=== PATIENT | female | born 1945 | race Caucasian/White ===

== ENCOUNTER 2017-01-31 16:05 | Inpatient (IN) | payer OTHER, MEDICARE ==
[~2017-01-31] VITALS: Ht 160 cm; Wt 91.3 kg
[2017-02-22] MEDS ORDERED: POTA20TA5 PO (10:44)
[2017-02-22] MEDS ORDERED: CO Q100C9 PO (10:44)
[2017-02-22] MEDS ORDERED: ATOR40TA16 PO (10:44)
[2017-02-23] MEDS ORDERED: BUPIVACAINE HCL PF 0.5% 30 ML VIAL NERV BLOCK ONE (07:46)
[2017-02-23] MEDS ORDERED: SODIUM CHLORID 0.9% 500 ML IV PRN (09:00)
[2017-02-23] MEDS ORDERED: INSULIN HUMAN REGULAR 1,000 UNITS/10 ML VIAL SQ PRN (09:00)
[2017-02-23] MEDS ORDERED: CHLORHEXIDINE GLUCONATE 2 % 1 PACK (2 CLOTHS) TOPICAL PRN (09:00)
[2017-02-23] MEDS ORDERED: EXPAREL PERI-ARTICULAR INJECTION (TOTAL VOL. 60 ML) P-ARTICULR SCH ×2 (09:00)
[2017-02-23] MEDS ORDERED: DEXAMETHASONE SOD PHOS 20 MG/5 ML VIAL IV SCH (09:00)
[2017-02-23] MEDS ORDERED: VANCOMYCIN 1000 MG/NS 250 ML (for <70 kg) IV SCH ×2 (09:00)
[2017-02-23] MEDS ORDERED: LACTATED RINGER'S 1000 ML IV PRN (09:00)
[2017-02-23] MEDS ORDERED: POVIDONE IODINE 5% (ANTISEPSIS KIT) 4 APPLICATIONS EACH NARE PRN (09:00)
[2017-02-23] MEDS ORDERED: ceFAZolin 2 GM PREMIX 50 ML IV SCH (09:00)
[2017-02-23] MEDS ORDERED: METOPROLOL TARTRATE 25 MG TAB PO PRN (09:00)
[2017-02-23 09:01] VITALS: BP 150/92; PULSE 69; RESP 18; TEMP 97.6; O2SAT 96
[2017-02-23] MEDS ORDERED: GENTAMICIN SULFATE 80 MG/2 ML VIAL ONE (09:28)
[2017-02-23] MEDS ORDERED: fentaNYL CITRATE 250 MCG/5 ML AMP ONE (11:41)
[2017-02-23] MEDS ORDERED: SODIUM CHLOR 0.9% 250 ML INJ 250 ML IV ONE (12:00)
[2017-02-23] MEDS ORDERED: PROPOFOL 200 MG/20 ML AMP IV ONE (12:00)
[2017-02-23] MEDS ORDERED: PHENYLEPHRINE HCL 10 MG/ML VIAL IV ONE (12:00)
[2017-02-23] MEDS ORDERED: PHENYLEPH/NS 1000 MCG/10 ML SYR IV ONE (12:00)
[2017-02-23] MEDS ORDERED: ONDANSETRON HCL 4 MG/2 ML VIAL IV PUSH ONE (12:00)
[2017-02-23] MEDS ORDERED: LACTATED RINGER'S 1000 ML INJ 1,000 ML IV ONE (12:00)
[2017-02-23] MEDS ORDERED: MINERAL OIL 10 ML VIAL ONE (13:39)
[2017-02-23] MEDS ORDERED: SODIUM CHLORIDE 0.9% FLUSH 5 ML FLUSH IVF PRN (14:45)
[2017-02-23] MEDS ORDERED: diphenhydrAMINE HCL 25 MG CAP PO PRN (14:45)
[2017-02-23] MEDS ORDERED: Post-op Orders (for Pharmacy) MISC XX ONE (14:45)
[2017-02-23] MEDS ORDERED: MISCELLANEOUS NURSING INFORMATION XX PRN (14:45)
[2017-02-23] MEDS ORDERED: MORPHINE SULFATE 4 MG/ML INJ IV PUSH PRN (14:45)
[2017-02-23] MEDS ORDERED: ONDANSETRON HCL 4 MG/2 ML VIAL IVP PRN (14:45)
[2017-02-23] MEDS ORDERED: MISCELLANEOUS PHARMACY INFORMATION XX ONE (14:45)
[2017-02-23] MEDS ORDERED: NALOXONE HCL 0.4 MG/ML AMP IV PRN (14:45)
[2017-02-23] MEDS ORDERED: MAGNESIUM HYDROXIDE SUSP 30 ML CUP PO PRN (14:45)
[2017-02-23] MEDS ORDERED: ACETAMINOPHEN/HYDROcodone 325 MG/5 MG TAB PO PRN (14:45)
[2017-02-23] MEDS ORDERED: NORC5TAB PO (14:50)
[2017-02-23] MEDS ORDERED: DO NOT ADM ANY ANTICOAGULANT DRUGS PRN (15:11)
[2017-02-23 15:56] LABS: AUTOMATED NEUTROPHIL # 6.6 TH/MM3 (1.8-7.7); BASOPHIL % 0.2 % (0.0-2.0); EOSINOPHIL % 0.1 % (0.0-4.0); HEMATOCRIT 36.2 % (35.0-46.0); HEMO FLAGS DIFF FINAL; LYMPH % 5.4 % (9.0-44.0); LYMPHOCYTE # 0.4 TH/MM3 (1.0-4.8); MEAN CELL VOLUME 92.2 FL (80.0-100.0); MEAN CORPUSCULAR HEMOGLOBIN 31.8 PG (27.0-34.0); MEAN CORPUSCULAR HGB CONC 34.5 % (32.0-36.0); NEUT % 93.3 % (16.0-70.0); PLATELET COUNT 225 TH/MM3 (150-450); RED BLOOD COUNT 3.93 MIL/MM3 (4.00-5.30); RED CELL DISTRIBUTION WIDTH 13.6 % (11.6-17.2)
--- NOTE | 2017-02-23 15:58 | HHI.FF ---
Face to Face Verification Diagnosis: (1) Status post total shoulder arthroplasty (2) Osteoarthritis, shoulder Occupational Therapy Left UE Weight Bearing: Non WB Left UE Range of Motion: Pendular Nursing Nursing: Dressing changes Dressing Changes: Daily dressing change I have seen patient Lakisha Prescott on 02/23/17. My clinical findings support the need for the requested home health care services because: Limited ability to care for self I certify that my clinical findings support that this patient is homebound because: Post-op weakness Henry Corey February 23, 2017 15:58
--- NOTE | 2017-02-23 16:34 | RADRPT ---
EXAM DATE/TIME: 02/23/2017 16:11 [facility] COMPARISON: No previous studies available for comparison. INDICATIONS : Total left shoulder replacement. MEDICAL HISTORY : None. SURGICAL HISTORY : None. ENCOUNTER: Initial ACUITY: 1 day PAIN SCORE: 4/10 LOCATION: Left shoulder. FINDINGS: Left shoulder arthroplasty is present. Hardware appears intact. Alignment is anatomic. The adjacent c lavicle and ribs are unremarkable. CONCLUSION: Satisfactory appearance of left TSA Bang Faye MD on February 23, 2017 at 16:31 Board Certified Radiologist. This report was verified electronically.
[2017-02-23] MEDS: DEXT 5%-NACL 0.45% 1000 ML INJ 1,000 ML IV SCH (17:00)
[2017-02-23 20:00] VITALS: BP 142/94; PULSE 85; RESP 17; TEMP 99; O2SAT 95
[2017-02-23] MEDS ORDERED: ATORVASTATIN 40 MG TAB PO SCH (21:00)
[2017-02-23] MEDS: SODIUM CHLORIDE 0.9% FLUSH 5 ML FLUSH IVF SCH (21:00)
[2017-02-23] MEDS: DOCUSATE SODIUM 50 MG/SENNA 8.6 MG TAB PO SCH (23:02)
[2017-02-23] MEDS: ACETAMINOPHEN/HYDROcodone 325 MG/5 MG TAB PO PRN (23:02)
[2017-02-24] VITALS: BP 113/65; PULSE 77; RESP 20; TEMP 97.3; O2SAT 95
[2017-02-24 04:00] VITALS: BP 136/80; PULSE 76; RESP 20; TEMP 97.3; O2SAT 94
--- NOTE | 2017-02-24 06:38 | MP ---
cc: ALEX MARTIN DATE OF SURGERY February 23, 2017 PREOPERATIVE DIAGNOSIS Left shoulder severe osteoarthritis. POSTOPERATIVE DIAGNOSIS Left shoulder severe osteoarthritis. SURGEON Dr. Alex Martin STEWARD/STEWARDESS SECOND HENNY Jackson The surgical procedure was assisted by my Advanced Registered Nurse Practitioner. My APPLE PACKING HEADER's presence was necessary throughout this case for the manipulation and positioning of the surgical extremity. My APPLE PACKING HEADER was assisting me throughout the duration of this procedure. The skill set of an Advanced Registered Nurse Practitioner was medically necessary to complete this procedure. During the surgical case, the computer aided design technician was working at the back table and the Advanced Registered Nurse Practitioner was directly assisting me. PROCEDURE Left total shoulder arthroplasty. IMPLANTS Arthrex Univers glenoid small, Arthrex Univers II humeral stem size 10, Arthrex Univers II humeral head 46/20. ESTIMATED BLOOD LOSS 150 cc. ANESTHESIA General anesthesia and interscalene block. PROCEDURE The patient had regional anesthesia performed. The patient was brought back to the operative theater. General anesthesia was administered. The patient was placed into a modified beach-chair position keeping the head closer to a supine position than more of an upright position. The left upper extremity was prepped and draped in the usual sterile fashion. The patient had intravenous Ancef and vancomycin. We made standard incision and dissected through the deltopectoral interval. The cephalic vein initially was protected but then ended up getting stretched and ligated later on in the case. We identified the conjoined tendon and placed a retractor just lateral to it. There were some adhesions at the undersurface of the deltoid which were elevated. We identified the subscapularis tendon and then made incision through this tendon off of the border leaving a nice remnant for repair. We tagged the subscapularis tendon with multiple #2 FiberWires for later repair. We extended the incision through the rotator interval which was later repaired as well. We found end-stage arthritis. We also found at least a moderate joint effusion. There were large osteophytes. We resected capsular attachments inferiorly and then we performed an osteotomy of the humeral head using the Arthrex guide which was derived from an intramedullary device and then placed in 30 degrees of version. We cleaned up the edges of the cut to ensure that the rotator cuff was still intact, then removed further osteophytes inferiorly. We then used a canal finder followed by sequential broaching into the proximal humerus going up to a size 10 which had very nice fit, keeping the version that was obtained from the cut on the humeral head. We then prepared the glenoid by exposing it further with resecting the labrum. We identified the biceps tendon which was still intact and remained intact throughout the case. We placed a drill pin in the center of the glenoid and then reamed it for a small size. We then created the keel with the associated jig, using the drills creating the three holes, then completing the hole, then punching out the central keel. There was a small area on the very superior aspect that I did see some fat posteriorly indicating that a small portion of this did not exit the bone superiorly. The remainder of the keel was in excellent position and was very well-centralized. The wound was thoroughly irrigated. Note that we did ream the glenoid down to a nice bony bed prior to punching the keel. We then cemented in the glenoid component, removing excess cement. This was a small component. We turned out attention back to the proximal humerus and trialed this. We ended up going with the 46 x 20 head which fit very nicely and also replicated the anatomy compared to the previous bone that was resected. The patient had very nice stability with this and no significant undue tension. The final head was placed. We did rotate it slightly to allow for excellent coverage of the exposed humeral head underlying bone. We placed the final stem into position, locked this with the torque screwdrivers, followed by placed in the final head again in slight rotation to perfectly cover the exposed bone on the humeral head. We reduced the shoulder, irrigated and then repaired the subscapularis with multiple FiberWires. We repaired the interval as well. The skin was closed with 2-0 Vicryl, followed by adonay. The left arm was dressed and then we placed the patient into a sling and swath. Postop plan is follow standard total shoulder arthroplasty protocol. MD SUSHILA Villarreal/KEANU /2:45 PM /6:20 AM
[2017-02-24] MEDS: ACETAMINOPHEN/HYDROcodone 325 MG/5 MG TAB PO PRN ×2 (07:03→12:41)
[2017-02-24 08:00] VITALS: BP 143/88; PULSE 78; RESP 18; TEMP 96.6; O2SAT 95
[2017-02-24 08:30] VITALS: O2SAT 94
[2017-02-24] MEDS: SODIUM CHLORIDE 0.9% FLUSH 5 ML FLUSH IVF SCH (09:00)
[2017-02-24] MEDS ORDERED: MULTIVITAMINS/MINERALS THERAPEUTIC TAB PO SCH (09:00)
[2017-02-24] MEDS ORDERED: POTASSIUM CHLORIDE 20 MEQ CONTROLLED RELEASE TAB PO SCH (09:00)
[2017-02-24] MEDS: DOCUSATE SODIUM 50 MG/SENNA 8.6 MG TAB PO SCH (09:35)
[2017-02-24] MEDS: DEXT 5%-NACL 0.45% 1000 ML INJ 1,000 ML IV SCH (11:00)
[2017-02-24 11:59] VITALS: BP 129/77; PULSE 75; RESP 18; TEMP 96.8; O2SAT 95
--- NOTE | 2017-02-24 12:28 | PD.ORT.PN ---
Subjective Post Op Day #: 1 Subjective Remarks Patient resting in bed in NAD. Patient reports mild to moderate left shoulder pain. Patient requesting to go home with home health today. Objective Vitals Vital Signs Date Time Temp Pulse Resp B/P Pulse Ox O2 Delivery O2 Flow Rate FiO2 02/24/17 11:59 96.8 75 18 129/77 95 02/24/17 08:30 94 02/24/17 08:00 96.6 78 18 143/88 95 02/24/17 04:00 97.3 76 20 136/80 94 02/24/17 00:00 97.3 77 20 113/65 95 02/23/17 20:51 21 02/23/17 20:00 99.0 85 17 142/94 95 02/23/17 18:00 75 14 117/70 97 Nasal Cannula 2 02/23/17 16:15 97.2 74 14 118/69 95 Nasal Cannula 2 02/23/17 16:00 77 14 105/66 95 Nasal Cannula 2 02/23/17 15:45 73 14 109/66 95 Nasal Cannula 2 02/23/17 15:30 76 14 101/61 94 Nasal Cannula 2 02/23/17 15:19 97.5 77 14 110/64 96 Nasal Cannula 2 I/O 02/23/17 02/23/17 02/23/17 02/24/17 02/24/17 02/24/17 07:00 15:00 23:00 07:00 15:00 23:00 Intake Total 1960 ml 120 ml Output Total 550 ml Balance 1410 ml 120 ml Intake Oral 360 ml 120 ml IV Total 100 ml Other 1500 ml Output Urine Total 250 ml Estimated Blood Loss 300 ml # Voids 1 2 # Bowel Movements 0 0 Result Diagram: 02/23/17 1545 Procedures Left TSA Objective Remarks The patient's dressing was changed today with scant serosanguineous drainage. Incision is well approximated with surgical clips intact. No redness or s/s of infection. EPL/APB/ROSA intact. 2+ radial pulse. Moderate swelling. + SILT. Assessment & Plan Ortho Post Op Day #: 1 Problem List: Assessment and Plan POD #1: Left TSA 1. NWB Left upper extremity 2. Continue with sling and swath 3. Ice to the left shoulder PRN 4. Stable for discharge home with home health today. Patient will f/u with Dr. Winters. Henry Corey February 24, 2017 12:28
--- NOTE | 2017-02-27 16:53 | HHI.DS ---
Discharge Summary Admission Date February 23, 2017 at 08:03 Discharge Date: February 24, 2017 Admitting Diagnosis OA of the left shoulder Status post total shoulder replacement, left Diagnosis: (1) Osteoarthritis, shoulder Diagnosis: Principal (2) Status post total shoulder arthroplasty Diagnosis: Principal Procedures Left TSA Brief History This is a 71 year old female patient with severe OA of the left shoulder. CBC/BMP: 02/23/17 1545 PE at Discharge The patient's dressing was changed today with scant serosanguineous drainage. Incision is well approximated with surgical clips intact. No redness or s/s of infection. EPL/APB/ROSA intact. 2+ radial pulse. Moderate swelling. + SILT. Hospital Course The patient was admitted to the hospital for severe OA of the left shoulder to have a left TSA. The patient's surgery went well with no complications. The patient is NWB on the LUE. The patient is on a regular diet post op. The patient should wear a sling and swath for support and comfort. The patient was discharged home with home health and will f/u in the office with Dr. Winters in 1 -2 weeks. Pt Condition on Discharge: Stable Discharge Disposition: Disch w/ Home Health Serv Discharge Instructions Diet Instructions: As Tolerated, No Restrictions Activities You Can Perform: Non Weight Bearing Activities to Avoid: Strenuous Activity Additional Activity Instruc.: NWB LUE Follow up Referrals: Orthopedics with Alex Winters MD [facility]/ with [facility] [phone] New Medications: Hydrocodone-Acetaminophen ([place]) 5-325 mg Tab 1-2 TAB PO Q4H PRN PAIN #60 Ref 0 TAB Continued Medications: Atorvastatin (Atorvastatin) 40 Mg Tab 40 MG PO HS Cholesterol Management #30 Ref 0 TAB Coenzyme Q10 (Ubidecarenone) (Co Q 10) 100 Mg Cap 1 TAB PO HS Potassium Chloride Microencaps (Potassium Chloride Microencaps) 20 Meq Tab 20 MEQ PO DAILY Electrolyte Replacement #30 Ref 0 TAB Henry Corey February 27, 2017 16:53
== END 2017-02-24 16:52 | disposition home or self-care (01) | DRG 483 ==
LOC: HSDI 02-23 08:03 → N06B 02-23 19:03
PROVIDERS: ADMIT Orthopaedic Surgery; ATTEND Orthopaedic Surgery
PROC: 3E0T3CZ (ICD-10-PCS; 2017-02-23)
PROC: 0RRK0JZ Replacement of Left Shoulder Joint with Synthetic Substitute, Open Approach (ICD-10-PCS; principal; 2017-02-23 11:55)
DX: M19.012 Primary osteoarthritis, left shoulder (principal); M25.412 Effusion, left shoulder
CPT/HCPCS: 73030; 76937; 85025; 86850; 86900; 86901; 94150; C1776; C9290; J0690; J1100; J1580; J2370; J2405; J3010; J3370; J7050; J7120

== ENCOUNTER 2017-08-14 23:06 | Observation (INO) | payer OTHER ==
[~2017-08-14] VITALS: Ht 165.1 cm; Wt 86.0 kg
[~2017-08-14 23:06] MED LIST: ATOR40TA16 PO; CO Q100C9 PO; NORC5TAB PO; POTA20TA5 PO
[2017-08-14 23:07] VITALS: BP 185/114; PULSE 68; RESP 16; TEMP 97.7; O2SAT 95
[2017-08-14 23:23] VITALS: BP 192/109; PULSE 78; RESP 18; O2SAT 98
[2017-08-14] MEDS ORDERED: SODIUM CHLORIDE 0.9% FLUSH 10 ML FLUSH IVF PRN (23:30)
[2017-08-14] MEDS ORDERED: NITROGLYCERIN 2% OINT 1 GM PACKET TOP ONE (23:30)
[2017-08-14] MEDS ORDERED: NITROGLYCERIN 0.4 MG SL 25 TABS/BTL SL ONE (23:30)
[2017-08-14] MEDS ORDERED: ASPIRIN 81 MG CHEW TAB PO ONE (23:30)
--- NOTE | 2017-08-14 23:39 | PD ---
HPI Chief Complaint: Chest Pain Time Seen by Provider: 23:20 Travel History International Travel<30 days: No Contact w/Intl Traveler<30days: No Traveled to known affect area: No History of Present Illness HPI The patient is a 72 year old female who presents to the [facility] emergency department with a history of chest pain that began around 10 PM. She was watching TV at the time. the pain was on bilateral sides of chest and center of chest. The pain was coming and going. The pain is sharp in character. She denies having any radiation of pain. She reports the pain gets worse when she lies flat and improves with sitting up. She denies any pleuritic component to the pain. She denies any history of heart disease. Her last stress test was in [place] 2 years ago. She has chronic sob related to COPD and she has been using it more than usual for the last 2 days. She was recently on a bus trip to [place] and returned 2 days ago. She has lower extremity edema reportedly from being on the bus over the last two day. She has had calf pain in both legs since getting home which she attributed to walking more than usual on vacation. She has had a cough that is productive of normal colored phlegm for the last week. Otherwise on review of systems, she denies any recent fevers , neck pain, abdominal pain, vomiting, diarrhea, urinary symptoms, or neurologic symptoms. [facility] Past Medical History Narrative Medical The patient's past medical history is significant for hyperlipidemia, COPD, arthritis, left arm numbness as a complication from a digital block for her shoulder replacement. Cancer: No Cardiovascular Problems: No High Cholesterol: Yes COPD: Yes Diabetes: No Endocrine: No Genitourinary: No Hepatitis: No Hiatal Hernia: No Immune Disorder: No Musculoskeletal: Yes (arthritis) Neurologic: Yes (numbness in l arm at times) Psychiatric: No Reproductive: No Respiratory: Yes (copd) Thyroid Disease: No Tetanus Vaccination: Unknown Influenza Vaccination: Yes Past Surgical History Narrative Surgical The patient's past surgical history is significant for an appendectomy, right shoulder replacement, tonsillectomy. Abdominal Surgery: Yes (appy) AICD: No Cardiac Surgery: No Ear Surgery: No Endocrine Surgery: No Eye Surgery: No Genitourinary Surgery: No Gynecologic Surgery: Yes (hysterectomy) Joint Replacement: Yes (r/l knee) Oral Surgery: No Pacemaker: No Thoracic Surgery: No Social History Alcohol Use: Yes (OCC) Tobacco Use: No Substance Use: No Allergies-Medications (Allergen,Severity, Reaction): Coded Allergies: No Known Allergies (Unverified , 08/14/17) Reported Meds & Prescriptions Reported Meds & Active Scripts Active [place] (Hydrocodone-Acetaminophen) 5-325 mg Tab 1-2 Tab PO Q4H PRN Reported Potassium Chloride Microencaps 20 Meq Tab 20 Meq PO DAILY Co Q 10 (Coenzyme Q10 (Ubidecarenone)) 100 Mg Cap 1 Tab PO HS Atorvastatin (Atorvastatin Calcium) 40 Mg Tab 40 Mg PO HS Review of Systems Except as stated in HPI: all other systems reviewed are Neg General / Constitutional: No: Fever Eyes: No: Visual changes HENT: No: Headaches Cardiovascular: Positive: Chest Pain or Discomfort, Dyspnea on exertion Respiratory: Positive: Cough, Shortness of Breath Gastrointestinal: No: Abdominal Pain Genitourinary: No: Dysuria Musculoskeletal: No: Pain Skin: No Rash Neurologic: No: Weakness Psychiatric: No: Depression Endocrine: No: Polydipsia Hematologic/Lymphatic: No: Easy Bruising Physical Exam Narrative General: The patient is a well-developed well-nourished female, uncomfortable appearing on arrival, sitting up and she reports that this helps with the discomfort. Head and Neck exam: Head is normocephalic atraumatic. Eyes: EOMI, pupils are equal round and reactive to light. Nose: Midline septum with pink mucous membranes Mouth: Dentition unremarkable. Moist mucus membranes. Posterior oropharynx is not erythematous. No tonsillar hypertrophy. Uvula midline. Airway patent. Neck: No palpable lymphadenopathy. No nuchal rigidity. No thyromegaly. Cardiovascular: Regular rate and rhythm without murmurs, gallops, or rubs. No pulse deficit to the extremities on simultaneous auscultation and palpation of the radial artery. Lungs: Decreased breath sounds in bilateral bases. No wheezes or rhonchi audible. No crackles audible. The patient has an occasional productive cough on examination. Abdomen: Soft, without tenderness to palpation in all 4 quadrants of the abdomen. No guarding, rebound, or rigidity. Sounds are audible. No tenderness on palpation of McBurney's point. Extremities: No clubbing, cyanosis, or edema. 2+ pulses in all 4 extremities. The patient reports having bilateral calf tenderness on palpation. There is no erythema. The patient has a positive Homans sign bilaterally. No palpable cords. Back: No spinous process tenderness to palpation. No costovertebral angle tenderness to palpation. Neurologic Exam: Grossly nonfocal. Skin Exam: No rash noted. Intact skin that is warm and dry. Data Data Last Documented VS Vital Signs Date Time Temp Pulse Resp B/P (MAP) Pulse Ox O2 Delivery O2 Flow Rate FiO2 08/15/17 01:00 63 16 126/82 (97) 96 Room Air 08/14/17 23:07 97.7 Orders Orders Electrocardiogram (08/14/17 23:20) B-Type Natriuretic Peptide (08/14/17:20) Ckmb (Isoenzyme) Profile (08/14/17 23:20) Complete Blood Count With Diff (08/14/17 23:20) Comprehensive Metabolic Panel (08/14/17 23:20) Magnesium (Mg) (08/14/17 23:20) Prothrombin Time / Inr (Pt) (08/14/17:20) Act Partial Throm Time (Ptt) (08/14/17 23:20) Troponin I (08/14/17 23:20) Lipase (08/14/17 23:20) Chest, Single Ap (08/14/17 23:20) Ecg Monitoring (08/14/17 23:20) Bilateral Bp Monitoring (08/14/17 23:20) Iv Access Insert/Monitor (08/14/17 23:20) Oximetry (08/14/17 23:20) Oxygen Administration (08/14/17 23:20) Aspirin Chew (Aspirin Chew) (08/14/17 23:30) Nitroglycerin 2% Oint (Nitroglycerin 2% (08/14/17 23:30) Sodium Chloride 0.9% Flush (Ns Flush) (08/14/17 23:30) Nitroglycerin Sl (Nitrostat Sl) (08/14/17 23:30) Ct Pulmonary Angiogram (08/15/17 00:11) CKMB (08/14/17 23:40) CKMB% (08/14/17 23:40) Us Leg Venous Doppler Bilat (08/15/17 00:45) Iohexol 350 Inj (Omnipaque 350 Inj) (08/15/17 02:11) Admit Order (Ed Use Only) (08/15/17 02:17) Labs Laboratory Tests Test 08/14/17 23:40 White Blood Count 9.2 TH/MM3 Red Blood Count 4.31 MIL/MM3 Hemoglobin 13.9 GM/DL Hematocrit 40.3 % Mean Corpuscular Volume 93.7 FL Mean Corpuscular Hemoglobin 32.3 PG Mean Corpuscular Hemoglobin Concent 34.5 % Red Cell Distribution Width 13.6 % Platelet Count 255 TH/MM3 Mean Platelet Volume 7.7 FL Neutrophils (%) (Auto) 59.2 % Lymphocytes (%) (Auto) 28.0 % Monocytes (%) (Auto) 8.2 % Eosinophils (%) (Auto) 3.3 % Basophils (%) (Auto) 1.3 % Neutrophils # (Auto) 5.4 TH/MM3 Lymphocytes # (Auto) 2.6 TH/MM3 Monocytes # (Auto) 0.8 TH/MM3 Eosinophils # (Auto) 0.3 TH/MM3 Basophils # (Auto) 0.1 TH/MM3 CBC Comment DIFF FINAL Differential Comment Prothrombin Time 9.9 SEC Prothromb Time International Ratio 0.9 RATIO Activated Partial Thromboplast Time 24.3 SEC Blood Urea Nitrogen 16 MG/DL Creatinine 0.99 MG/DL Random Glucose 98 MG/DL Total Protein 7.6 GM/DL Albumin 3.9 GM/DL Calcium Level 8.9 MG/DL Magnesium Level 2.2 MG/DL Alkaline Phosphatase 103 U/L Aspartate Amino Transf (AST/SGOT) 32 U/L Alanine Aminotransferase (ALT/SGPT) 34 U/L Total Bilirubin 0.7 MG/DL Sodium Level 140 MEQ/L Potassium Level 3.9 MEQ/L Chloride Level 106 MEQ/L Carbon Dioxide Level 27.2 MEQ/L Anion Gap 7 MEQ/L Estimat Glomerular Filtration Rate 55 ML/MIN Total Creatine Kinase 101 U/L Creatine Kinase MB 0.7 NG/ML Troponin I LESS THAN 0.02 NG/ML B-Type Natriuretic Peptide 4 PG/ML Lipase 233 U/L MDM Medical Decision Making Medical Screen Exam Complete: Yes Emergency Medical Condition: Yes Medical Record Reviewed: Yes Interpretation(s) Last Impressions Lower Extremity Ultrasound 08/15/17 0045 Signed Impressions: Service Date/Time: Tuesday, August 15, 2017 01:22 - CONCLUSION: No DVT in either leg. Josh Sevilla MD CT Angiography 08/15/17 0011 Signed Impressions: Service Date/Time: Tuesday, August 15, 2017 02:02 - CONCLUSION: 1. No evidence for pulmonary embolism. 2. Mild emphysema and minimal density right upper lobe likely scarring. 3. A few scattered subcentimeter pulmonary nodules the largest in the right lower lobe measuring [address] chest in 6 months recommended for stability. Josh Sevilla MD Chest X-Ray 08/14/170 Signed Impressions: Service Date/Time: Monday, August 14, 2017 23:48 - CONCLUSION: 1. Bibasilar subsegmental atelectasis. Josh Sevilla MD Differential Diagnosis Pulmonary embolism, versus acute coronary syndrome, versus pneumonia, versus DVT Narrative Course During the course of the patients emergency department visit, the patients history, examination, and differential diagnosis were reviewed with the patient. The patient was placed on a grated cheese maker with oximetry and frequent blood pressure monitoring. The patient had IV access obtained and blood work sent for analysis. The patient had an ECG done on arrival. The patient's ECG shows a sinus rhythm without any acute ST segment elevation, marked left axis deviation is noted, QRS duration is 84 ms, QTC 424 ms. T waves are inverted in V1. The patient was initially provided sublingual nitroglycerin 1, nitroglycerin 1 inch the chest wall, aspirin 324 mg by mouth 1. The patients laboratory studies were reviewed and remarkable for a white count of 9.2, hemoglobin 13.9, platelets 255 with 8.2 monocytes, CMP is remarkable for GFR 55, initial set of cardiac enzymes are negative, lipase 233, BNP 4, PT/ PTT within normal limits. Radiology studies were reviewed and remarkable for an ultrasound that is negative for DVT bilaterally. Chest x-ray shows basilar subsegmental atelectasis, CTA to rule out PE shows no evidence of pulmonary embolism. The patient will be admitted to the hospital for rule out serial cardiac enzyme protocol followed by stress testing as she reports that she has not had any stress test done in the last 2 years. The patients results were discussed with the patient, including the plan of care. I explained that further testing and/ or monitoring is indicated based on the patients history, examination, and/ or laboratory findings. Therefore, I recommended admission for additional evaluation. The patient expressed understanding and was agreeable with this plan. The patient was admitted to the hospital in stable condition and sent to a bed under the care of chest pain center. Diagnosis Primary Impression: Chest pain, rule out acute myocardial infarction Admitting Information Admitting Physician Requests: Observation Velvet Acuna MD Aug 14, 2017 23:39
[2017-08-14 23:58] LABS: AUTOMATED NEUTROPHIL # 5.4 TH/MM3 (1.8-7.7); BASOPHIL # 0.1 TH/MM3 (0-0.2); BASOPHIL % 1.3 % (0.0-2.0); EOSINOPHIL # 0.3 TH/MM3 (0-0.4); EOSINOPHIL % 3.3 % (0.0-4.0); HEMATOCRIT 40.3 % (35.0-46.0); HEMO FLAGS DIFF FINAL; LYMPHOCYTE # 2.6 TH/MM3 (1.0-4.8); MEAN CELL VOLUME 93.7 FL (80.0-100.0); MEAN CORPUSCULAR HEMOGLOBIN 32.3 PG (27.0-34.0); MEAN CORPUSCULAR HGB CONC 34.5 % (32.0-36.0); MONO % 8.2 % (0.0-8.0); NEUT % 59.2 % (16.0-70.0); PLATELET COUNT 255 TH/MM3 (150-450); RED BLOOD COUNT 4.31 MIL/MM3 (4.00-5.30); RED CELL DISTRIBUTION WIDTH 13.6 % (11.6-17.2); WHITE BLOOD COUNT 9.2 TH/MM3 (4.0-11.0)
[2017-08-15] VITALS (10 sets, daily range): BP systolic 126–188; BP diastolic 82–96; PULSE 63–78; RESP 16–18; TEMP 97.5–98.1; O2SAT 94–97
--- NOTE | 2017-08-15 00:01 | RADRPT ---
EXAM DATE/TIME: 08/14/2017 23:48 [facility] COMPARISON: No previous studies available for comparison. INDICATIONS : Shortness of breath. MEDICAL HISTORY : None. SURGICAL HISTORY : None. ENCOUNTER: Initial ACUITY: 1 day PAIN SCORE: 0/10 LOCATION: Bilateral chest FINDINGS: A single view of the chest demonstrates bibasilar linear densities. Heart normal in size. Diminished lung volumes. The cardiomediastinal contours are unremarkable. Osseous structures are intact. Left h umeral prosthesis. CONCLUSION: 1. Bibasilar subsegmental atelectasis. Josh Sevilla MD on August 14, 2017 at 23:59 Board Certified Radiologist. This report was verified electronically.
[2017-08-15 00:10] LABS: APTT (PATIENT) 24.3 SEC (24.3-30.1); INTERNATIONAL NORMALIZED RATIO 0.9 RATIO; PROTHROMBIN TIME - PATIENT 9.9 SEC (9.8-11.6)
[2017-08-15 00:35] LABS: ALKALINE PHOSPHATASE 103 U/L (45-117); ALT (GPT) 34 U/L (10-53); ANION GAP 7 MEQ/L (5-15); AST (GOT) 32 U/L (15-37); BICARBONATE 27.2 MEQ/L (21.0-32.0); BLOOD UREA NITROGEN 16 MG/DL (7-18); CHLORIDE 106 MEQ/L (98-107); CREATINE KINASE 101 U/L (26-192); GLOMERULAR FILTRATION RATE 55 ML/MIN (>89); MAGNESIUM 2.2 MG/DL (1.5-2.5); SODIUM (NA) 140 MEQ/L (136-145); TOTAL BILIRUBIN ADULT 0.7 MG/DL (0.2-1.0)
[2017-08-15 00:39] LABS: POTASSIUM 3.9 MEQ/L (3.5-5.1)
[2017-08-15 00:52] LABS: CKMB 0.7 NG/ML (0.5-3.6)
[2017-08-15] MEDS ORDERED: IOHEXOL 350 MG/ML 10 ML VIAL (for RAD DIAG) IVCONTRAST ONE (02:11)
--- NOTE | 2017-08-15 02:15 | RADRPT ---
EXAM DATE/TIME: 08/15/2017 01:22 [facility] COMPARISON: No previous studies available for comparison. INDICATIONS : Bilateral leg swelling. MEDICAL HISTORY : Hypercholesterolemia. Chronic obstructive pulmonary disease. Hearing aids. Arthritis. SURGICAL HISTORY : Appendectomy.Hysterectomy. Right knee replacement. ENCOUNTER: Initial ACUITY: 1 week PAIN SCORE: 2/10 LOCATION: Bilateral legs. TECHNIQUE: Venous ultrasound of the left and right leg was performed from the inguinal ligament to the proximal calf. Real-time, color Doppler and spectral tracing, compression and augmentation techniques were us ed. FINDINGS: RIGHT LEG: There is normal compressibility of the deep venous system from the inguinal region to the proximal ca lf. No echogenic clot is seen in the lumen of the common femoral, femoral, popliteal, and posterior tibial veins. There is a normal response of the venous system to proximal and distal augmentation an d respiration. LEFT LEG: There is normal compressibility of the deep venous system from the inguinal region to the proximal ca lf. No echogenic clot is seen in the lumen of the common femoral, femoral, popliteal, and posterior tibial veins. There is a normal response of the venous system to proximal and distal augmentation an d respiration. CONCLUSION: No DVT in either leg. Josh Sevilla MD on August 15, 2017 at 2:13 Board Certified Radiologist. This report was verified electronically.
--- NOTE | 2017-08-15 02:22 | RADRPT ---
EXAM DATE/TIME: 08/15/2017 02:02 [facility] COMPARISON: No previous studies available for comparison. INDICATIONS : Chest pain. Evaluate for embolism. IV CONTRAST: 75 cc Omnipaque 350 (iohexol) IV RADIATION DOSE: 11.95 CTDIvol (mGy) MEDICAL HISTORY : Chronic obstructive pulmonary disease. SURGICAL HISTORY : Hysterectomy. ENCOUNTER: Initial ACUITY: 1 day PAIN SCALE: 4/10 LOCATION: Bilateral chest TECHNIQUE: Volumetric scanning of the chest was performed using a pulmonary embolism protocol MIP images were re constructed. Using automated exposure control and adjustment of the mA and/or kV according to patien t size, radiation dose was kept as low as reasonably achievable to obtain optimal diagnostic quality images. DICOM format image data is available electronically for review and comparison. Follow-up recommendations for detected pulmonary nodules are based at a minimum on nodule size and pa tient risk factors according to Fleischner Society Guidelines. FINDINGS: PULMONARY ARTERIES: No filling defects are seen in the pulmonary arteries through the segmental level. LUNGS: There is no consolidation or pneumothorax . Few scattered subcentimeter pulmonary nodules. Mild centr ilobular emphysema. Minimal density right upper lobe. PLEURAE: There is no pleural thickening or pleural effusion. MEDIASTINUM: There is good visualization of the great vessels of the middle mediastinum. No evidence of mediastin al or hilar adenopathy/mass. MUSCULOSKELETAL: Within normal limits for patient age. MISCELLANEOUS: The visualized upper abdominal organs demonstrate no acute abnormality. CONCLUSION: 1. No evidence for pulmonary embolism. 2. Mild emphysema and minimal density right upper lobe likely scarring. 3. A few scattered subcentimeter pulmonary nodules the largest in the right lower lobe measuring [address] chest in 6 months recommended for stability. Josh Sevilla MD on August 15, 2017 at 2:17 Board Certified Radiologist. This report was verified electronically.
[2017-08-15] MEDS ORDERED: SODIUM CHLORIDE 0.9% FLUSH 10 ML FLUSH IV FLUSH PRN (02:45)
[2017-08-15 03:49] LABS: CREATINE KINASE 53 U/L (26-192)
[2017-08-15 07:01] LABS: CREATINE KINASE 84 U/L (26-192)
[2017-08-15] MEDS ORDERED: ACETAMINOPHEN 500 MG CPLT PO ONE (08:30)
[2017-08-15] MEDS ORDERED: RESP: ALBUTEROL 2.5 MG/IPRATROPIUM 0.5 MG NEB (PRN) INH (08:30)
--- NOTE | 2017-08-15 08:58 | HHI.HP ---
HPI Primary Care Physician Rogers Richard MD Chief Complaint Chest pain History of Present Illness This is a 72-year-old female that presents to ED with a complaint of chest discomfort that began last evening while watching television. There intermittent. She states they're on the side her chest along the center of her chest. There sharp. Lasting 5-10 minutes. No shortness breath, nausea, or diaphoresis. She found nothing to bring them on or to worsen or improve them when she has them. Denies history of CAD. Review of Systems General: Patient denies fevers, chills recent, and recent travel HEENT: Patient denies headache, sore throat, difficulty swallowing. Cardiovascular: Has the chest discomfort as mentioned above. Denies sensation of heart beating rapidly or irregularly. No syncope. Denies diaphoresis. Respiratory: Denies shortness of breath or inspirational chest discomfort. Denies coughing wheezing or hemoptysis. GI: Patient denies nausea, vomiting, diarrhea, abdominal pain, bloody stools. Musculoskeletal: Patient denies joint pain or edema. Denies calf pain or edema. Neurovascular: Patient denies numbness, tingling, weakness in extremities. Denies headache. Endocrine: Denies polyuria and polydipsia. Hematologic: Denies easy bruising. Skin: Denies rash or itching. Past Family Social History Allergies: Coded Allergies: No Known Allergies (Unverified , 08/14/17) Past Medical History COPD, hyperlipidemia. Denies hypertension and diabetes. Denies CAD. Past Surgical History Left shoulder replacement, appendectomy, tonsillectomy, and hysterectomy. Reported Medications Reported Meds & Active Scripts Active [place] (Hydrocodone-Acetaminophen) 5-325 mg Tab 1-2 Tab PO Q4H PRN Reported Potassium Chloride Microencaps 20 Meq Tab 20 Meq PO DAILY Co Q 10 (Coenzyme Q10 (Ubidecarenone)) 100 Mg Cap 1 Tab PO HS Atorvastatin (Atorvastatin Calcium) 40 Mg Tab 40 Mg PO HS Active Ordered Medications Current Medications Medications (Trade) Dose Ordered Sig/Samir Route Start Time Stop Time Status Last Admin (NS Flush) 2 ml UNSCH PRN IVF 08/14/17 23:30 (NS Flush) 2 ml UNSCH PRN IV FLUSH 08/15/17 02:45 (NS Flush) 2 ml BID IV FLUSH 08/15/17 09:00 (Duoneb Neb) 1 ampule Q4HR NEB PRN INH 08/15/17 08:30 Family History Her father had CAD. Social History Smoking 7 years ago. Prior to that she smoked for 50 years. Physical Exam Vital Signs Vital Signs Date Time Temp Pulse Resp B/P (MAP) Pulse Ox O2 Delivery O2 Flow Rate FiO2 08/15/17 07:36 97.5 69 18 155/82 (106) 95 08/15/17 03:54 98.1 67 18 148/93 (111) 95 08/15/17 03:48 08/15/17 03:04 94 21 08/15/17 02:00 78 16 142/91 (108) 97 Room Air 08/15/17 01:00 63 16 126/82 (97) 96 Room Air 08/15/17 00:44 73 16 188/96 (126) 97 Room Air 08/14/17 23:23 78 18 192/109 (136) 98 Room Air 08/14/17 23:07 97.7 68 16 185/114 (137) 95 Room Air Physical Exam GENERAL: This is a well-nourished, well-developed patient, in no apparent distress. Patient speaks in clear complete sentences. Patient is pleasant. HEENT: Head is atraumatic and normocephalic. Neck is supple without lymphadenopathy and trachea is midline. No JVD or carotid bruits. CARDIOVASCULAR: Regular rate and rhythm without murmurs, gallops, or rubs. RESPIRATORY: Clear to auscultation. Breath sounds equal bilaterally. No wheezes , rales, or rhonchi. Chest wall is nontender. No use of accessory muscles. GASTROINTESTINAL: Abdomen is nontender, nondistended. Abdomen soft. No obvious pulsatile mass or bruit. No CVA tenderness. Strong femoral pulses bilaterally. Normal bowel sounds in all quadrants. MUSCULOSKELETAL: Patient is moving upper and lower extremities freely. No calf tenderness or edema, no Homans sign. Strong pulses in upper and lower extremities. NEUROLOGICAL: Patient is alert and oriented. Cranial nerves 2-12 are grossly intact. No focal deficits and speech is clear. SKIN: No rash and turgor is normal. Laboratory Laboratory Tests Test 08/14/17 23:40 08/15/17 03:01 08/15/17 06:00 White Blood Count 9.2 Red Blood Count 4.31 Hemoglobin 13.9 Hematocrit 40.3 Mean Corpuscular Volume 93.7 Mean Corpuscular Hemoglobin 32.3 Mean Corpuscular Hemoglobin Concent 34.5 Red Cell Distribution Width 13.6 Platelet Count 255 Mean Platelet Volume 7.7 Neutrophils (%) (Auto) 59.2 Lymphocytes (%) (Auto) 28.0 Monocytes (%) (Auto) 8.2 Eosinophils (%) (Auto) 3.3 Basophils (%) (Auto) 1.3 Neutrophils # (Auto) 5.4 Lymphocytes # (Auto) 2.6 Monocytes # (Auto) 0.8 Eosinophils # (Auto) 0.3 Basophils # (Auto) 0.1 CBC Comment DIFF FINAL Differential Comment Prothrombin Time 9.9 Prothromb Time International Ratio 0.9 Activated Partial Thromboplast Time 24.3 Blood Urea Nitrogen 16 Creatinine 0.99 Random Glucose 98 Total Protein 7.6 Albumin 3.9 Calcium Level 8.9 Magnesium Level 2.2 Alkaline Phosphatase 103 Aspartate Amino Transf (AST/SGOT) 32 Alanine Aminotransferase (ALT/SGPT) 34 Total Bilirubin 0.7 Sodium Level 140 Potassium Level 3.9 Chloride Level 106 Carbon Dioxide Level 27.2 Anion Gap 7 Estimat Glomerular Filtration Rate 55 Total Creatine Kinase 101 53 84 Creatine Kinase MB 0.7 Troponin I LESS THAN 0.02 LESS THAN 0.02 LESS THAN 0.02 B-Type Natriuretic Peptide 4 Lipase 233 Result Diagram: 08/14/17 2340 08/14/17 2340 Imaging Last 24 hours Impressions Lower Extremity Ultrasound 08/15/17 0045 Signed Impressions: Service Date/Time: Tuesday, August 15, 2017 01:22 - CONCLUSION: No DVT in either leg. Josh Sevilla MD CT Angiography 08/15/17 0011 Signed Impressions: Service Date/Time: Tuesday, August 15, 2017 02:02 - CONCLUSION: 1. No evidence for pulmonary embolism. 2. Mild emphysema and minimal density right upper lobe likely scarring. 3. A few scattered subcentimeter pulmonary nodules the largest in the right lower lobe measuring [address] chest in 6 months recommended for stability. Josh Sevilla MD Chest X-Ray 08/14/170 Signed Impressions: Service Date/Time: Monday, August 14, 2017 23:48 - CONCLUSION: 1. Bibasilar subsegmental atelectasis. Josh Sevilla MD Course EKGs are sinus rhythm without significant ST segment depressions or elevations. Caprini VTE Risk Assessment Caprini VTE Risk Assessment: Mod/High Risk (score >= 2) Caprini Risk Assessment Model Point Value = 1 Point Value = 2 Point Value = 3 Point Value = 5 Age 41-60 Minor surgery BMI > 25 kg/m2 Swollen legs Varicose veins or History of unexplained or recurrent spontaneous Oral contraceptives or hormone replacement Sepsis (< 1 month) Serious lung disease, including pneumonia (< 1 month) Abnormal pulmonary function Acute myocardial infarction Congestive heart failure (< 1 month) History of inflammatory bowel disease Medical patient at bed rest Age 61-74 Arthroscopic surgery Major open surgery (> 45 min) Laparoscopic surgery (> 45 min) Malignancy Confined to bed (> 72 hours) Immobilizing plaster cast Central venous access Age >= 75 History of VTE Family history of VTE Factor V Leiden Prothrombin [id number] Lupus anticoagulant Anticardiolipin antibodies Elevated serum homocysteine Heparin-induced thrombocytopenia Other congenital or acquired thrombophilia Stroke (< 1 month) Elective arthroplasty Hip, pelvis, or leg fracture Acute spinal cord injury (< 1 month) Prophylaxis Regimen Total Risk Factor Score Risk Level Prophylaxis Regimen 0-1 Low Early ambulation 2 Moderate Order ONE of the following: *Sequential Compression Device (SCD) *Heparin 5000 units SQ BID 3-4 Higher Order ONE of the following medications: *Heparin 5000 units SQ TID *Enoxaparin/Lovenox 40 mg SQ daily (WT < 150 kg, CrCl > 30 mL/min) *Enoxaparin/Lovenox 30 mg SQ daily (WT < 150 kg, CrCl > 10-29 mL/min) *Enoxaparin/Lovenox 30 mg SQ BID (WT < 150 kg, CrCl > 30 mL/min) AND/OR *Sequential Compression Device (SCD) 5 or more Highest Order ONE of the following medications: *Heparin 5000 units SQ TID (Preferred with Epidurals) *Enoxaparin/Lovenox 40 mg SQ daily (WT < 150 kg, CrCl > 30 mL/min) *Enoxaparin/Lovenox 30 mg SQ daily (WT < 150 kg, CrCl > 10-29 mL/min) *Enoxaparin/Lovenox 30 mg SQ BID (WT < 150 kg, CrCl > 30 mL/min) AND *Sequential Compression Device (SCD) Assessment and Plan Assessment and Plan * Chest pain: Patient has had serial cardiac enzymes and EKGs for ruling out purposes and was seen by Dr. Dharmesh Ortiz of cardiology in the chest pain center. Patient will undergo a Lexiscan myocardial perfusion stress test. She' ll be discharged home if her stress test was nonischemic with instructions to follow-up with her local PCP. * Lung nodules: Patient will need have a repeat CT scan to reevaluate lung nodules. A copy of the report will be given to the patient to discuss this with her PCP next follow-up within a week. Patient is stable at this time. She is agreeable to this plan. Griffin Mak Aug 15, 2017 08:58
[2017-08-15] MEDS ORDERED: SODIUM CHLORIDE 0.9% FLUSH 10 ML FLUSH IV FLUSH SCH (09:00)
[2017-08-15] MEDS ORDERED: REGADENOSON INJ 0.4 MG/5 ML SYR ONE (10:03)
--- NOTE | 2017-08-15 11:16 | RADRPT ---
EXAM DATE/TIME: 08/15/2017 09:07 [facility] COMPARISON: No previous studies available for comparison. INDICATIONS : Bilateral chest pain. Angina. DOSE: 27.2 mCi Tc99m Myoview at stress. 8.8 mCi Tc99m Myoview at rest. 0.4 mg Lexiscan STRESS SYMPTOMS: None. EJECTION FRACTION: 67% MEDICAL HISTORY : Hypercholesterolemia. Hypertension. Chronic obstructive pulmonary disease. SURGICAL HISTORY : Appendectomy. Hysterectomy. ENCOUNTER: Initial ACUITY: 1 day PAIN SCALE: 7/10 LOCATION: Bilateral chest TECHNIQUE: The patient underwent pharmacologic stress with infusion of prescribed dose. Continuous ECG tracing was monitored during stress. Gated SPECT imaging was performed after stress and conventional SPECT i maging was performed at rest. The examination was performed on a SPECT/CT scanner, both attenuation and non-corrected datasets were reviewed. FINDINGS: DISTRIBUTION: The maximum perfused segment at stress is in the anterolateral wall. PERFUSION STUDY: The pattern of perfusion at stress show some fixed diminished perfusion to the apex with no reversibi lity to suggest ischemia. GATED STUDY: There is intact wall motion and thickening without hypokinetic or dyskinetic segments. CONCLUSION: 1. Fixed diminished perfusion defects characteristic of apical thinning or old infarct. 2. No reversibility to suggest ischemia. 3. Adequate wall motion throughout with an estimated ejection fraction of 67%. RISK CATEGORY: Low (<1% Annual Mortality Rate) Antonio Bonds MD on August 15, 2017 at 11:12 Board Certified Radiologist. This report was verified electronically.
--- NOTE | 2017-08-15 11:38 | HHI.DCPOC ---
Discharge Care Plan Diagnosis: (1) Chest pain (2) Lung nodule seen on imaging study Goals to Promote Your Health DISCUSS LUNG NODULE WHEN YOU SEE YOUR PCP WITHIN 1 WEEK. YOU WILL NEED TO HAVE REPEAT CT OF LUNGS TO EVALUATE LUNG NODULE WITHIN 6 MONTHS. * To prevent worsening of your condition and complications * To maintain your health at the optimal level Directions to Meet Your Goals Take your medications as prescribed Follow your dietary instruction Follow activity as directed Keep your appointments as scheduled Take your immunizations and boosters as scheduled If your symptoms worsen call your PCP, if no PCP go to Urgent Care Center or Emergency Room Smoking is Dangerous to Your Health. Avoid second hand smoke Call the 24-hour hour crisis hotline for domestic abuse at Griffin Mak Aug 15, 2017 11:38
--- NOTE | 2017-08-15 13:57 | EKG ---
Date Performed: 08/15/2017 Time Performed: 03:30:28 PTAGE: 72 years EKG: Sinus rhythm BORDERLINE LEFT AXIS DEVIATION BORDERLINE ECG PREVIOUS TRACING : 08/14/2017 23.20 Since previous tracing, no significant change noted DOCTOR: Dharmesh Ortiz Interpretating Date/Time 08/15/2017 13:57:11
--- NOTE | 2017-08-15 13:57 | EKG ---
Date Performed: 08/15/2017 Time Performed: 06:16:14 PTAGE: 72 years EKG: Sinus rhythm BORDERLINE LEFT AXIS DEVIATION NONSPECIFIC T-WAVE ABNORMALITY BORDERLINE ECG PREVIOUS TRACING : 08/15/2017 03.30 Since previous tracing, no significant change noted DOCTOR: Dharmesh Ortiz Interpretating Date/Time 08/15/2017 13:56:30
--- NOTE | 2017-08-15 13:58 | EKG ---
Date Performed: 08/14/2017 Time Performed: 23:20:36 PTAGE: 72 years EKG: Sinus rhythm MARKED LEFT AXIS DEVIATION ABNORMAL ECG NO PREVIOUS TRACING DOCTOR: Dharmesh Ortiz Interpretating Date/Time 08/15/2017 13:57:47
--- NOTE | 2017-08-15 13:59 | TR ---
Date Performed: 08/15/2017 Time Performed: 09:48:44 DOCTOR: Dharmesh Ortiz DRUG LIST: CLINICAL HISTORY: REASON FOR TEST: Angina REASON FOR ENDING: OBSERVATION: CONCLUSION: Lexiscan stress test was performed under standard four minute protocol. Radionucl[place] e was injected one minute prior to ending the test. No electrocardiographic abormalities were present to suggest ischemia. Nuclear imaging and interpretation are pending. COMMENTS:
[2017-08-15] MEDS ORDERED: ATORVASTATIN 40 MG TAB PO SCH (21:00)
[2017-08-16] MEDS ORDERED: POTASSIUM CHLORIDE 20 MEQ CONTROLLED RELEASE TAB PO SCH (09:00)
== END 2017-08-15 12:37 | disposition home or self-care (01) ==
LOC: NEPC 23:06 → NEDA 08-15 02:19 → NEPGCP 08-15 03:43
DX: R07.9 Chest pain, unspecified (principal); J98.11 Atelectasis; J44.9 Chronic obstructive pulmonary disease, unspecified; R60.0 Localized edema; M79.604 Pain in right leg; M79.605 Pain in left leg; R05 Cough; R20.0 Anesthesia of skin; E78.00 Pure hypercholesterolemia, unspecified; Z87.891 Personal history of nicotine dependence; R94.31 Abnormal electrocardiogram [ECG] [EKG]
CPT/HCPCS: 71010; 71275; 78452; 80053; 82550; 82552; 83690; 83735; 83880; 84484; 85025; 85610; 85730; 93005; 93017; 93970; 99285; A9502; G0378; J2785; Q9967